=== PATIENT | male | born 1945 | race Caucasian/White ===

== ENCOUNTER 2017-12-29 06:34 | Inpatient (IN) ==
[~2017-12-29 06:34] MED LIST: Vancomycin 1,000 MG, Sodium Chloride IRRigation 1,000 ML IR ONE
[2017-12-29] MEDS ORDERED: Albuterol 2.5 MG/3 ML NEBULIZER IH ONE (07:28)
[2017-12-29] MEDS ORDERED: CeFAZolin Syr 2,000MG/20 ML 2,000 MG/20 ML SYRINGE IVPB ONE (07:28)
[2017-12-29] MEDS ORDERED: Ringers Solution, Lactated 1,000 ML IVC SCH (07:30)
[2017-12-29] MEDS ORDERED: Heparin 1,000 UNITS/500 mL 0 ML ONE (07:54)
[2017-12-29] MEDS ORDERED: Ondansetron 4 MG/2 ML VIAL ONE (08:13)
[2017-12-29] MEDS ORDERED: Dexamethasone 4 MG/ML VIAL ONE (08:13)
[2017-12-29] MEDS ORDERED: *HR* Midazolam HCl 2 MG/2 ML VIAL ONE ×2 (08:13)
[2017-12-29] MEDS ORDERED: *HR* Rocuronium Bromide 50 MG/5 ML VIAL ONE (08:13)
[2017-12-29] MEDS ORDERED: Lidocaine -MPF 2% 2 ML VIAL ONE ×2 (08:13→08:16)
[2017-12-29] MEDS ORDERED: *HR* Propofol 200 MG/20 ML VIAL IVP ONE (08:13)
[2017-12-29] MEDS ORDERED: Lidocaine -MPF 4% 5 ML AMPUL ONE (08:13)
[2017-12-29] MEDS ORDERED: *HR* Succinylcholine 200 MG/10 ML VIAL IVP ONE (08:13)
[2017-12-29] MEDS ORDERED: *HR* FentaNYL (PF) 100 MCG/2 ML VIAL ONE ×2 (08:14→10:07)
[2017-12-29] MEDS ORDERED: Heparin 1,000 UNITS/500 mL 2,000 ML ONE (08:48)
[2017-12-29] MEDS ORDERED: Vancomycin 1,000 MG VIAL ONE (08:48)
[2017-12-29] MEDS ORDERED: Isovue-300 150 ML INFUS..BTL IV ONE (08:49)
[2017-12-29] MEDS ORDERED: Vancomycin 1,000 MG, Sodium Chloride IRRigation 1,000 ML IR ONE (08:50)
[2017-12-29] MEDS ORDERED: *HR* Promethazine 25 MG/ML VIAL IVP PRN (08:58)
[2017-12-29] MEDS ORDERED: *HR* OxyCODONE Immed Rel 5 MG TABLET PO PRN ×2 (08:58→12:47)
[2017-12-29] MEDS ORDERED: *HR* Labetalol 20 MG/4 ML SYRINGE IVP PRN ×2 (08:58→12:47)
[2017-12-29] MEDS ORDERED: *HR* HYDROmorphone (PF) 1 MG/ML SYRINGE IVP PRN (08:58)
[2017-12-29] MEDS ORDERED: Ondansetron 4 MG/2 ML VIAL IVP ONE (08:58)
[2017-12-29] MEDS ORDERED: Morphine Sulfate Oral CONC 10 MG/0.5 ML ORAL.SYG SL PRN (08:58)
[2017-12-29] MEDS ORDERED: EPHEDrine 50 MG/ML VIAL ONE (09:33)
[2017-12-29] MEDS ORDERED: *HR* Heparin 5,000 UNIT/ML VIAL ONE (10:19)
[2017-12-29] MEDS ORDERED: Neostigmine Methylsulfate 3 MG/3 ML SYRINGE ONE (11:32)
[2017-12-29] MEDS ORDERED: Naloxone 0.4 MG/ML INJ IVP PRN (12:47)
[2017-12-29] MEDS ORDERED: Acetaminophen 325 MG TABLET PO PRN (12:47)
[2017-12-29] MEDS ORDERED: *HR* HYDROcodone/Acet 5/325 mg TABLET PO PRN (12:47)
[2017-12-29] MEDS ORDERED: Ondansetron 4 MG/2 ML VIAL IVP PRN (12:47)
[2017-12-29] MEDS ORDERED: 0.9 % Sodium Chloride 1,000 ML IVC SCH (12:47)
[2017-12-29] MEDS: *HR* Metoprolol 5 MG/5 ML VIAL IVP SCH ×3 (14:36→23:26)
[2017-12-29] MEDS ORDERED: Chloraseptic Spray 177 ML BOTTLE MM PRN (19:08)
[2017-12-29] MEDS ORDERED: Vancomycin 1,000 MG in D5% in Water 250 ML IVPB ONE (20:00)
[2017-12-29] MEDS: Artificial Tears SOLN 15 ML BOTTLE BOTH EYES SCH (20:48)
[2017-12-30 04:41] LABS: Basophils % 0.2 %; Eosinophils % 0.1 %; Hemoglobin 13.1 g/dL (12.9-16.9); Immature Granulocytes % 0.3 % (0-4); Lymphocytes # 1.4 K/mcL (0.6-4.6); Lymphocytes % 12.8 %; Mean Corpuscular HGB Conc 34.5 g/dL (31.6-35.5); Mean Corpuscular Hemoglobin 31.2 pg (28.0-33.3); Mean Corpuscular Volume 90.5 fL (83.0-100.0); Mean Platelet Volume 9.2 fL (9.4-12.4); Monocytes # 0.7 K/mcL (0.0-1.3); Monocytes % 6.8 %; Neutrophils # 8.6 K/mcL (1.6-8.9); Platelet Count 114 K/mcL (140-400); Red Cell Distribution Width 13.5 % (11.5-14.5); Segmented Neutrophils % 79.8 %; White Blood Count 10.7 K/mcL (4.3-11.1)
[2017-12-30] MEDS: *HR* Metoprolol 5 MG/5 ML VIAL IVP SCH (05:24)
[2017-12-30 05:45] LABS: BUN/Creatinine Ratio 11 (6-26); Blood Urea Nitrogen 9 mg/dL (8-23); Calcium 8.8 mg/dL (8.6-10.3); Carbon Dioxide 23 mEq/L (23-29); Chloride 105 mEq/L (98-107); Glucose 146 mg/dL (70-105); Osmolality,Calculated 285 (280-300); Potassium 3.9 mEq/L (3.5-5.1); Sodium 137 mEq/L (136-145); eGFR For African Americans > 60 (> 60); eGFR For Non-African Americans > 60 (> 60)
[2017-12-30] MEDS ORDERED: *HR* Heparin 5,000 UNIT/ML VIAL SQ SCH (06:00)
[2017-12-30] MEDS ORDERED: Levothyroxine 25 MCG TABLET PO SCH (06:30)
[2017-12-30 07:03] VITALS: BP 114/71
[2017-12-30] MEDS: Artificial Tears SOLN 15 ML BOTTLE BOTH EYES SCH (07:45)
[2017-12-30] MEDS ORDERED: Multivit/Ca/Min/Fe/FA 1 TAB TABLET PO SCH (09:00)
== END 2017-12-30 10:12 | disposition home or self-care (01) ==
LOC: SAMDAY 06:34 → 2NNU 12:29
PROVIDERS: ADMIT Surgery; ATTEND Surgery